=== PATIENT | male | born 1940 | race Caucasian/White ===

== ENCOUNTER 2018-11-12 08:30 | Emergency (ER) | payer MEDICARE ==
[2018-11-12 08:50] LABS: APPEARANCE,URINE TURBID (CLEAR); BILIRUBIN,URINE MODERATE (NEGATIVE); COLOR,URINE RED (YELLOW); GLUCOSE, URINE (UA) 250 mg/dL (NEGATIVE); KETONES,URINE 15 mg/dL (NEGATIVE); LEUKOCYTE ESTERASE ,URINE LARGE (NEGATIVE); NITRATE,URINE POSITIVE (NEGATIVE); OCCULT BLOOD,URINE LARGE (NEGATIVE); PROTEIN,URINE >=300 (NEGATIVE)
[2018-11-12 08:55] LABS: RBC,URINE TNTC /HPF (0-1)
[2018-11-12 08:56] LABS: BACTERIA,URINE Few /HPF (None Seen); SQUAMOUS EPITHELIAL CELL,UR Rare /HPF (0-2)
[2018-11-12 08:57] LABS: WBC,URINE >100 /HPF (0-1)
[2018-11-12] MEDS ORDERED: CEFTRIAXONE SODIUM 1 GM ONE (09:07)
[2018-11-12] MEDS ORDERED: LIDOCAINE HCL-MPF 1% 2ML VIAL ONE (09:07)
== END 2018-11-12 09:38 | disposition home or self-care (01) ==
LOC: EDH 08:30
DX: N30.91 Cystitis, unspecified with hematuria (principal); I10 Essential (primary) hypertension; I48.91 Unspecified atrial fibrillation; E78.5 Hyperlipidemia, unspecified; Z90.49 Acquired absence of other specified parts of digestive tract; Z90.89 Acquired absence of other organs
CPT/HCPCS: 81001; 96372; 99283; J0696; J3490

== ENCOUNTER 2019-10-04 21:04 | Emergency (ER) | payer MEDICARE ==
[2019-10-04 22:04] LABS: BASOPHILS % (AUTO) 0.6 % (0.0-5.0); EOSINOPHILS % (AUTO) 0.9 % (0.0-8.0); HEMATOCRIT 46.2 % (42-54); LYMPHOCYTES % (AUTO) 8.1 % (21.0-51.0); MEAN CORPUSCULAR HEMOGLOBIN 31.8 pg (27.0-33.0); MEAN CORPUSCULAR HGB CONC 34.2 g/dL (32.0-36.0); MONOCYTES % (AUTO) 5.9 % (3.0-13.0); NEUTROPHILS % (AUTO) 84.2 % (40.0-77.0); PLATELET COUNT (AUTO) 236 K/uL (130-400); RED BLOOD CELL COUNT(AUTO) 4.97 MIL/uL (4.50-6.20); RED CELL DISTRIBUTION WIDTH 13.8 % (11.0-15.5); WHITE BLOOD COUNT (AUTO) 15.4 K/uL (4.8-10.8)
[2019-10-04 22:14] LABS: CREATININE 1.7 mg/dL (0.5-1.5); POTASSIUM 3.7 mmol/L (3.5-5.1)
[2019-10-04 22:16] LABS: INR 2.37 (0.85-1.15); PROTHROMBIN TIME 24.1 SEC (9.6-11.6)
[2019-10-04 22:19] LABS: ALBUMIN 3.6 g/dL (3.5-5.0); BILIRUBIN,TOTAL 0.4 mg/dL (0.2-1.0); TOTAL PROTEIN, SERUM 7.2 g/dL (6.0-8.3)
[2019-10-04 22:21] LABS: APPEARANCE,URINE Clear (CLEAR); BILIRUBIN,URINE Negative (NEGATIVE); COLOR,URINE Yellow (YELLOW); GLUCOSE, URINE (UA) Negative (NEGATIVE); KETONES,URINE Negative (NEGATIVE); LEUKOCYTE ESTERASE ,URINE Negative (NEGATIVE); NITRATE,URINE Negative (NEGATIVE); OCCULT BLOOD,URINE Nonhemolyzed Trace (NEGATIVE); PROTEIN,URINE POS 2+ mg/dL (NEGATIVE); UROBILINOGEN,URINE 0.2 mg/dL (0.2-1.0)
[2019-10-04 22:29] LABS: BACTERIA,URINE Rare /HPF (None Seen); RBC,URINE 0-1 /HPF (0-1); SQUAMOUS EPITHELIAL CELL,UR 0-2 /HPF (0-2); WBC,URINE 0-1 /HPF (0-1)
[2019-10-04 23:07] LABS: B-TYPE NATRIURETIC PEPTIDE 94 pg/mL (0-100)
[2019-10-05] MEDS ORDERED: HYDROCHLOROTHIAZIDE 25 MG TABLET ONE (00:15)
== END 2019-10-05 00:57 | disposition home or self-care (01) ==
LOC: EDH 21:04
DX: N28.9 Disorder of kidney and ureter, unspecified (principal); R60.0 Localized edema; I48.91 Unspecified atrial fibrillation; I10 Essential (primary) hypertension; E78.5 Hyperlipidemia, unspecified; Z90.49 Acquired absence of other specified parts of digestive tract; Z98.890 Other specified postprocedural states; Z87.891 Personal history of nicotine dependence; Z88.7 Allergy status to serum and vaccine
CPT/HCPCS: 36415; 73610; 80053; 81001; 83880; 84484; 85025; 85610; 85730; 93005